=== PATIENT | female | born 2000 | race Caucasian/White ===

== ENCOUNTER 2022-07-16 18:22 | Outpatient (CLI) | payer MEDICAID, OTHER, SELFPAY ==
[~2022-07-16] VITALS: Ht 167.6 cm; Wt 61.9 kg
[2022-07-16 18:39] VITALS: BP 123/68
[2022-07-16] MEDS ORDERED: PEPT262C2 PO (18:57)
[2022-07-16] MEDS ORDERED: PRENTAB9 PO (18:57)
[2022-07-16] MEDS ORDERED: ONDA-83 PO (18:57)
[2022-07-16] MEDS ORDERED: WELLTAB38 PO (18:57)
[2022-07-16] MEDS ORDERED: ACET500P3 PO (18:57)
[2022-07-16] MEDS ORDERED: PROZ40CA PO (18:57)
[2022-07-16] MEDS ORDERED: HOME MED LIST COMPLETE! XX SCH (19:00)
[2022-07-16] MEDS ORDERED: BUPR15TA PO (19:08)
[2022-07-16 19:40] VITALS: BP 126/68
[2022-07-16 20:27] LABS: AMPHETAMINES URINE REFLEX NEGATIVE (NEGATIVE); BARBITURATES URINE REFLEX NEGATIVE (NEGATIVE); BENZODIAZEPINES URINE REFLEX NEGATIVE (NEGATIVE); CANNABINOIDS URINE REFLEX NEGATIVE (NEGATIVE); COCAINE METABOLITE URINE REFLE NEGATIVE (NEGATIVE); METHADONE URINE REFLEX NEGATIVE (NEGATIVE); OPIATES URINE REFLEX NEGATIVE (NEGATIVE); PHENCYCLIDINE URINE REFLEX NEGATIVE (NEGATIVE)
[2022-07-16 20:40] VITALS: BP 127/72
[2022-07-16] MEDS: BETAMETHASONE SOLUSPAN 6MG/ML 5ML VIAL (J0702 PER 3MG) IM SCH (20:52)
[2022-07-16] MEDS: metroNIDAZOLE (FLAGYL) 500MG TABLET PO SCH (21:05)
[2022-07-16 21:57] LABS: APPEARANCE, URINE MANUAL HAZY (CLEAR); BILIRUBIN, URINE MANUAL NEGATIVE (NEGATIVE); BLOOD URINE MANUAL POSITIVE (NEGATIVE); COLOR, URINE MANUAL DK YELLOW (YELLOW); GLUCOSE, URINE (UA) MANUAL NEGATIVE (NEGATIVE); KETONE, URINE MANUAL NEGATIVE (NEGATIVE); LEUKOCYTE ESTERASE, URINE MAN POSITIVE (NEGATIVE); NITRITE, URINE MANUAL NEGATIVE (NEGATIVE); PROTEIN, URINE MANUAL TRACE mg/dL (NEGATIVE); SPECIFIC GRAVITY,URINE MANUAL 1.025 (1.002-1.035); UROBILINOGEN, URINE MANUAL NORMAL (NORMAL)
[2022-07-16 21:58] LABS: HEMATOCRIT 34.7 % (36.0-47.0); HEMOGLOBIN 11.3 g/dl (12.0-15.5); MEAN CORPUSCULAR HEMOGLOBIN 26.8 pg (27.0-33.0); MEAN CORPUSCULAR HGB CONC 32.6 g/dl (32.0-36.5); MEAN CORPUSCULAR VOLUME 82.4 fl (80.0-96.0); PLATELET COUNT, AUTOMATED 107 10^3/uL (150-450); RED BLOOD COUNT 4.21 10^6/uL (4.00-5.40); WHITE BLOOD COUNT 10.5 10^3/uL (4.0-10.0)
[2022-07-16 22:14] LABS: WBC, URINE TNTC /hpf (0-3)
[2022-07-16 22:15] LABS: BACTERIA, URINE LARGE AMOUNT; MUCUS, URINE MOD AMOUNT (NEGATIVE); SQUAMOUS EPITHELIAL CELL URINE LARGE AMOUNT /hpf (SMALL AMT)
[2022-07-16 22:17] LABS: GC DNA AMPLIFICATION NEGATIVE (NEGATIVE)
[2022-07-16 22:39] VITALS: BP 135/72
[2022-07-17 07:17] VITALS: BP 108/63
[2022-07-17] MEDS: metroNIDAZOLE (FLAGYL) 500MG TABLET PO SCH ×2 (09:12→21:00)
[2022-07-17 09:13] VITALS: BP 139/82
[2022-07-17 09:27] LABS: ALBUMIN 2.4 GM/DL (3.2-5.2); ALT/SGPT 99 U/L (12-78); BILIRUBIN,TOTAL 1.3 MG/DL (0.2-1.0); BLOOD UREA NITROGEN 6 MG/DL (7-18); CALCIUM LEVEL 8.6 MG/DL (8.5-10.1); CARBON DIOXIDE LEVEL 25 MEQ/L (21-32); CHLORIDE LEVEL 104 MEQ/L (98-107); CREATININE FOR GFR 0.61 MG/DL (0.55-1.30); GLOMERULAR FILTRATION RATE > 60.0 (>60); GLUCOSE, FASTING 126 MG/DL (70-100); POTASSIUM SERUM 3.9 MEQ/L (3.5-5.1); SODIUM LEVEL 132 MEQ/L (136-145); TOTAL PROTEIN 6.1 GM/DL (6.4-8.2)
[2022-07-17 13:11] VITALS: BP 130/75
[2022-07-17 14:29] VITALS: BP 111/64
[2022-07-17] MEDS ORDERED: CALCIUM CARBONATE 500 MG CHEW U/D PO PRN (14:45)
[2022-07-17 16:26] VITALS: BP 114/69
[2022-07-17] MEDS ORDERED: RHOGAM 300 MCG (1500 IU) INJ (J2790) IM SCH (19:05)
[2022-07-17] MEDS ORDERED: METR-265 PO (19:17)
[2022-07-17] MEDS ORDERED: URSO300C3 PO (19:17)
[2022-07-17 20:38] VITALS: BP 132/64
[2022-07-17] MEDS ORDERED: ursodioL 300MG CAP PO SCH (21:00)
[2022-07-17] MEDS: BETAMETHASONE SOLUSPAN 6MG/ML 5ML VIAL (J0702 PER 3MG) IM SCH (21:05)
== END 2022-07-17 21:20 | disposition home or self-care (01) ==
LOC: M LDO 18:22
PROVIDERS: ATTEND Obstetrics & Gynecology
DX: O26.893 Other specified pregnancy related conditions, third trimester (principal); R10.2 Pelvic and perineal pain; O26.853 Spotting complicating pregnancy, third trimester; O99.343 Other mental disorders complicating pregnancy, third trimester; F41.9 Anxiety disorder, unspecified; Z3A.32 32 weeks gestation of pregnancy; O99.333 Smoking (tobacco) complicating pregnancy, third trimester; O36.5930 Maternal care for other known or suspected poor fetal growth, third trimester, not applicable or unspecified; O09.33 Supervision of pregnancy with insufficient antenatal care, third trimester; O26.613 Liver and biliary tract disorders in pregnancy, third trimester; O36.82 Fetal anemia and thrombocytopenia; O23.599 Infection of other part of genital tract in pregnancy, unspecified trimester; F15.11 Other stimulant abuse, in remission
CPT/HCPCS: 36415; 59025; 76811; 76815; 76819; 76820; 80053; 80307; 81000; 82239; 82950; 85027; 86780; 86850; 86900; 86901; 87389; 87661; 87810; 87850; 96372; J0702; J2790